=== PATIENT | female | born 1970 ===

== ENCOUNTER 2016-10-01 19:11 | Inpatient (IN) | payer MEDICARE, MEDICAID ==
--- NOTE | 2016-10-01 19:48 | C.PDOC ---
History Of Present Illness Patient presents to the ER requesting detox from heroin and ETOH. Patient reports his last use was 09/27/16; denies SI, HI or physical complaints at this time. Time Seen by Provider: 10/01/16 19:48 Chief Complaint (Nursing): Substance Abuse History Per: Patient History/Exam Limitations: no limitations Onset/Duration Of Symptoms: Hrs Current Symptoms Are (Timing): Still Present Suicide/Self Injury Attempted (Context): None Modifying Factor(s): Alcohol, Narcotics Severity: None Pain Scale Rating Of: 0 Associated Symptoms: denies: Depression, Suicidal Thoughts, Suicidal Plan Involuntary Hold By: None Recent travel outside of the [place]: No Past Medical History Reviewed: Historical Data, Nursing Documentation, Vital Signs Vital Signs: Last Vital Signs Temp 98.4 F 10/01/16 19:32 Pulse 89 10/01/16 21:17 Resp 18 10/01/16 21:17 BP 121/72 10/01/16 21:17 Pulse Ox 100 10/01/16 21:17 - Medical History PMH: Bipolar Disorder, Rheumatoid Arthritis Surgical History: No Surg Hx Family History: States: No Known Family Hx - Social History Hx Alcohol Use: Yes Hx Substance Use: Yes - Immunization History Hx Tetanus Toxoid Vaccination: No Hx Influenza Vaccination: No Hx Pneumococcal Vaccination: No Review Of Systems Constitutional: Negative for: Fever, Chills ENT: Negative for: Throat Pain Cardiovascular: Negative for: Chest Pain Respiratory: Negative for: Shortness of Breath Gastrointestinal: Negative for: Nausea, Vomiting, Diarrhea Musculoskeletal: Negative for: Back Pain Skin: Negative for: Rash Neurological: Negative for: Weakness Psych: Negative for: Suicidal ideation, Other (Homicidal ideation) Physical Exam - Physical Exam Appears: Non-toxic Skin: Warm, Dry Oral Mucosa: Moist Chest: Symmetrical, No Tenderness Cardiovascular: Rhythm Regular, No Murmur Respiratory: No Rales, No Rhonchi, No Wheezing Gastrointestinal/Abdominal: Soft, No Tenderness Neurological/Psych: Oriented x3 ED Course And Treatment - Laboratory Results Result Diagrams: 10/01/16 19:54 10/01/16 19:54 O2 Sat by Pulse Oximetry: 100 (Room air) Pulse Ox Interpretation: Normal Progress Note: Blood work and urinalysis ordered. ED OBSERVATION Date of observation admission: 10/01/16 Time of observation admission: 21:17 - Observation admission statement Patient is being placed in observation because:: acute alcohol intoxication - Goals of Observation Goals of observation are:: sobriety - Progress Note Progress Note: 10/01/16 21:17 vitals stable Disposition Discussed With Dr.: Jon Joshi Comment: accepted the pt on his service and took over the care at 9:39 PM Doctor Will See Patient In The: Hospital Counseled Patient/Family Regarding: Studies Performed, Diagnosis, Need For Followup - Disposition Disposition: HOSPITALIZED Disposition Time: 19:48 Condition: FAIR - Clinical Impression Clinical Impression: Drug abuse - Scribe Statement The provider has reviewed the documentation as recorded by the Scribe Ruben Jiménez All medical record entries made by the Scribe were at my direction and personally dictated by me. I have reviewed the chart and agree that the record accurately reflects my personal performance of the history, physical exam, medical decision making, and the department course for this patient. I have also personally directed, reviewed, and agree with the discharge instructions and disposition. Decision To Admit - Pt Status Changed To: Hospital Disposition Of: Inpatient - Admit Certification Admit to Inpatient:: After my assessment, the patient will require hospitalization for at least two midnights. This is because of the severity of symptoms shown, intensity of services needed, and/or the medical risk in this patient being treated as an outpatient. - InPatient: Physician Admission Certification: I certify that this patient requires 2 or more midnights of care for the following reason:: After my assessment, the patient will require hospitalization for at least two midnights. This is because of the severity of symptoms shown, intensity of services needed, and/or the medical risk in this patient being treated as an outpatient. - . Bed Request Type: Detox Admitting Physician: Jon Joshi Patient Diagnosis: Drug dependence
[2016-10-01 20:06] LABS: BASO % 0.6 % (0.0-2.0); EOS # 0.4 K/uL (0.0-0.7); HEMATOCRIT 36.7 % (34.0-47.0); LYMPH # 1.8 K/uL (1.0-4.3); LYMPH % 27.9 % (20.0-40.0); MEAN CELL VOLUME 92.3 fL (81.0-99.0); MEAN CORPUSCULAR HGB CONC 32.5 g/dL (33.0-37.0); MEAN PLATELET VOLUME 9.3 fL (7.2-11.7); MONO # 0.4 K/uL (0.0-0.8); MONO % 6.7 % (0.0-10.0); RED CELL DISTRIBUTION WIDTH 14.5 % (11.5-14.5); WHITE BLOOD COUNT 6.6 K/uL (4.8-10.8)
[2016-10-01 20:14] LABS: CHLORIDE 106 mmol/L (98-107); POTASSIUM 4.2 mmol/L (3.6-5.2); SODIUM 138 mmol/L (132-148)
[2016-10-01 20:15] LABS: RBC URINE 1 /hpf (0-3); URINE BACTERIA RARE (<OCC); URINE BILIRUBIN NEGATIVE (NEGATIVE); URINE BLOOD NEGATIVE (NEGATIVE); URINE COLOR Yellow (YELLOW); URINE GLUCOSE (UA) 3+ mg/dL (Normal); URINE KETONE NEGATIVE (NEGATIVE); URINE LEUKOCYTE ESTERASE NEG Leu/uL (Negative); URINE PROTEIN NEGATIVE (NEGATIVE); URINE UROBILINOGEN NORMAL mg/dL (0.2-1.0); WBC URINE 4 /hpf (0-5)
[2016-10-01 20:16] LABS: AST/SGOT 112 U/L (14-36); BILIRUBIN,TOTAL 0.6 mg/dL (0.2-1.3); CARBON DIOXIDE 25 mmol/L (22-30); GFR AFRICAN-AMERICAN > 60
[2016-10-01 20:17] LABS: ALCOHOL SERUM < 10 mg/dl (0-10); ALKALINE PHOSPHATASE 77 U/L (38-126); ALT/SGPT 108 U/L (9-52); BLOOD UREA NITROGEN 13 mg/dL (7-17); CALCIUM 9.7 mg/dl (8.6-10.4); GLUCOSE,RANDOM 273 mg/dL (65-105)
[2016-10-01] MEDS ORDERED: Magnesium Hydroxide Susp 30 ml UD PO SCH (22:15)
[2016-10-02] MEDS: Multiple Vitamins Tab PO SCH (09:45)
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
[2016-10-02] MEDS ORDERED: Magnesium Hydroxide Susp 30 ml UD PO PRN (22:02)
[2016-10-02] MEDS: Bacitracin Ointment 30 GM TUBE TOP SCH (22:04)
[2016-10-03] MEDS: Multiple Vitamins Tab PO SCH (10:16)
[2016-10-03] MEDS: Bacitracin Ointment 30 GM TUBE TOP SCH ×2 (10:19→17:31)
--- NOTE | 2016-10-03 11:58 | PCM.PYCHPN ---
Psychiatric Progress Note - Psychiatric Progress Note Patient seen today, length of contact: 17 min Patient Chief Complaint: "I am nervous" Problems Identified/Issues Discussed: The pt is seen, chart reviewed, case discussed with staff. Support given, CBT and VT used briefly No new symptoms reported, improving slowly and needs more time Has constipation but not new. No SEs from medications, risks discussed. After care discussed Medication Change: Yes (detox changes daily, increase zoloft and gabapentin) Medical Record Reviewed: Yes Mental Status Examination - Cognitive Function Orientation: Person, Place, Situation, Time Memory: Intact Attention: Poor Concentration: Poor Association: WNL Fund of Knowledge: Poor - Mood Mood: Depressed, Anxious - Affect Affect: Constricted - Speech Speech: Appropriate - Formal Thought Process Formal Thought Process: No Impairment - Suicidal Ideation Suicidal Ideation: No - Homicidal Ideation Homicidal Ideation: No Goal/Treatment Plan - Goal/Treatment Plan Need for Continued Stay: Discharge may exacerbated symptoms, Severe functional impairment Progress Toward Problem(s) and Goals/Treatment Plan: Alcohol: -Ativan detox due to elevated LFTs -Gabapentin -Support and psychoeducation -Attend groups and activities -VT and CBT -Vitamins and as needed medications Cocaine: -Gabapentin -VT and CBT for abstinence -Attend groups and activities -Support and psychoeducation Depression: -Zoloft for depression -Seroquel for insomnia and depression -CBT and supportive therapy Estimated Date of D/C: 10/06/16 - Smoking Cessation Smoking Cessation Initiated: Yes
[2016-10-04] MEDS: Multiple Vitamins Tab PO SCH (09:15)
[2016-10-04] MEDS: Bacitracin Ointment 30 GM TUBE TOP SCH ×2 (09:16→17:17)
--- NOTE | 2016-10-04 09:33 | PCM.PYCHPN ---
Psychiatric Progress Note - Psychiatric Progress Note Patient seen today, length of contact: 17 min Patient Chief Complaint: "I am better" Problems Identified/Issues Discussed: The pt is seen, chart reviewed, case discussed with staff. Support given, CBT and CT used briefly No new symptoms reported, improving slowly and needs some more time No SEs from medications, risks discussed. After care discussed Medication Change: Yes (detox changes daily) Medical Record Reviewed: Yes Mental Status Examination - Cognitive Function Orientation: Person, Place, Situation, Time Memory: Intact Attention: Poor Concentration: Poor Association: WNL Fund of Knowledge: Poor - Mood Mood: Depressed, Anxious - Affect Affect: Constricted - Speech Speech: Appropriate - Formal Thought Process Formal Thought Process: No Impairment - Suicidal Ideation Suicidal Ideation: No - Homicidal Ideation Homicidal Ideation: No Goal/Treatment Plan - Goal/Treatment Plan Need for Continued Stay: Discharge may exacerbated symptoms, Severe functional impairment Progress Toward Problem(s) and Goals/Treatment Plan: Alcohol: -Ativan detox due to elevated LFTs -Gabapentin -Support and psychoeducation -Attend groups and activities -CT and CBT -Vitamins and as needed medications Cocaine: -Gabapentin -CT and CBT for abstinence -Attend groups and activities -Support and psychoeducation Depression: -Zoloft for depression -Seroquel for insomnia and depression -CBT and supportive therapy Estimated Date of D/C: 10/06/16
[2016-10-05] MEDS ORDERED: Pneumococcal 23-Valent Vaccine IM ONE (10:00)
[2016-10-05] MEDS: Bacitracin Ointment 30 GM TUBE TOP SCH ×2 (11:24→17:53)
[2016-10-05] MEDS: Multiple Vitamins Tab PO SCH (11:25)
--- NOTE | 2016-10-06 00:03 | PCM.PYCHPN ---
Psychiatric Progress Note - Psychiatric Progress Note Patient seen today, length of contact: 17 min Patient Chief Complaint: "Tired" Problems Identified/Issues Discussed: The pt is seen, chart reviewed, case discussed with staff. The pt is compliant with medications and reports no side-effects. Symptoms are improving but needs more time to stabilize. After care discussed, support and psychoeducation given. Medication Change: Yes (detox changes daily) Medical Record Reviewed: Yes Mental Status Examination - Cognitive Function Orientation: Person, Place, Situation, Time Memory: Intact Attention: Poor Concentration: Poor Association: WNL Fund of Knowledge: Poor - Mood Mood: Depressed, Anxious - Affect Affect: Constricted - Speech Speech: Appropriate - Formal Thought Process Formal Thought Process: No Impairment - Suicidal Ideation Suicidal Ideation: No - Homicidal Ideation Homicidal Ideation: No Goal/Treatment Plan - Goal/Treatment Plan Need for Continued Stay: Discharge may exacerbated symptoms, Severe functional impairment Progress Toward Problem(s) and Goals/Treatment Plan: Alcohol: -Ativan detox due to elevated LFTs -Gabapentin -Support and psychoeducation -Attend groups and activities -PR and CBT -Vitamins and as needed medications Cocaine: -Gabapentin -PR and CBT for abstinence -Attend groups and activities -Support and psychoeducation Depression: -Zoloft for depression -Seroquel for insomnia and depression -CBT and supportive therapy Estimated Date of D/C: 10/06/16
[2016-10-06] MEDS: Multiple Vitamins Tab PO SCH (09:32)
[2016-10-06] MEDS: Bacitracin Ointment 30 GM TUBE TOP SCH ×2 (09:33→22:11)
[2016-10-06 10:03] VITALS: RESP 18
--- NOTE | 2016-10-06 13:25 | PCM.PYCHPN ---
Psychiatric Progress Note - Psychiatric Progress Note Patient seen today, length of contact: 16 min Patient Chief Complaint: "Scared" Problems Identified/Issues Discussed: The pt is seen, chart reviewed, case discussed with staff. The pt is compliant with medications and reports no side-effects. Symptoms are improving but needs more time to stabilize. If she leaves now w/o an intake at [facility] she oseas likely relapse After care discussed, support and psychoeducation given. Medication Change: Yes (Ativan taper adjusted: 2 mg today, 1 mg and end tomorrow ) Medical Record Reviewed: Yes Mental Status Examination - Cognitive Function Orientation: Person, Place, Situation, Time Memory: Intact Attention: Poor Concentration: Poor Association: WNL Fund of Knowledge: Poor - Mood Mood: Depressed, Anxious - Affect Affect: Constricted - Speech Speech: Appropriate - Formal Thought Process Formal Thought Process: No Impairment - Suicidal Ideation Suicidal Ideation: No - Homicidal Ideation Homicidal Ideation: No Goal/Treatment Plan - Goal/Treatment Plan Need for Continued Stay: Discharge may exacerbated symptoms, Severe functional impairment Progress Toward Problem(s) and Goals/Treatment Plan: Alcohol: -Ativan detox due to elevated LFTs -Gabapentin -Support and psychoeducation -Attend groups and activities -VT and CBT -Vitamins and as needed medications Cocaine: -Gabapentin -VT and CBT for abstinence -Attend groups and activities -Support and psychoeducation Depression: -Zoloft for depression -Seroquel for insomnia and depression -CBT and supportive therapy Estimated Date of D/C: 10/07/16 If changed, why: extra doses and intake at [facility]
[2016-10-06 20:00] VITALS: O2SAT 98
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
[2016-10-07] MEDS: Multiple Vitamins Tab PO SCH (09:45)
[2016-10-07] MEDS: Bacitracin Ointment 30 GM TUBE TOP SCH (09:52)
[2016-10-07 10:44] VITALS: BP 100/60; PULSE 88; TEMP 98
== END 2016-10-07 10:30 | disposition home or self-care (01) | DRG 895 ==
LOC: C.ER 19:11 → C.7D 21:41
PROVIDERS: ADMIT Psychiatry & Neurology Psychiatry; ATTEND Psychiatry & Neurology Psychiatry
PROC: HZ2ZZZZ Detoxification Services for Substance Abuse Treatment (ICD-10-PCS; principal; 2016-10-01)
PROC: HZ52ZZZ Individual Psychotherapy for Substance Abuse Treatment, Cognitive-Behavioral (ICD-10-PCS; 2016-10-01)
PROC: HZ59ZZZ Individual Psychotherapy for Substance Abuse Treatment, Supportive (ICD-10-PCS; 2016-10-01)
PROC: HZ56ZZZ Individual Psychotherapy for Substance Abuse Treatment, Psychoeducation (ICD-10-PCS; 2016-10-01)
DX: F10.239 Alcohol dependence with withdrawal, unspecified (principal); F33.1 Major depressive disorder, recurrent, moderate; F14.90 Cocaine use, unspecified, uncomplicated; E11.9 Type 2 diabetes mellitus without complications; F41.9 Anxiety disorder, unspecified; M06.9 Rheumatoid arthritis, unspecified; B19.20 Unspecified viral hepatitis C without hepatic coma; Z59.0 Homelessness; F17.210 Nicotine dependence, cigarettes, uncomplicated